=== PATIENT | male | born 1970 | race Caucasian/White ===

== ENCOUNTER 2017-09-18 03:33 | Emergency (ER) | payer MEDICAID ==
[2017-09-18] MEDS ORDERED: ALBUTEROL 0.5% (NEB) 2.5 MG/0.5 ML AMP INH (06:36)
[2017-09-18] MEDS ORDERED: IPRATROPIUM (NEB) 0.5 MG/2.5 ML AMP INH (06:36)
[2017-09-18] MEDS ORDERED: predniSONE 20 MG TAB PO (06:36)
== END 2017-09-18 08:01 | disposition home or self-care (01) ==
LOC: FTE 03:33
DX: J20.9 Acute bronchitis, unspecified (principal); R00.2 Palpitations
CPT/HCPCS: 93005; 99284-25

== ENCOUNTER 2017-10-03 20:43 | Emergency (ER) | payer MEDICAID ==
[2017-10-03] MEDS: DEXAMETHASONE 10 MG/ML 1 ML INJ IM (22:56)
[2017-10-03] MEDS: IPRATROPIUM (NEB) 0.5 MG/2.5 ML AMP HHN (23:11)
[2017-10-03] MEDS: ALBUTEROL 0.083% (NEB) 2.5 MG/3 ML AMP HHN (23:11)
== END 2017-10-04 00:30 | disposition home or self-care (01) ==
LOC: FTE 10-04 00:30
DX: R05 Cough (principal); R06.2 Wheezing
CPT/HCPCS: 71045; 94664; 96372; 99284-25